=== PATIENT | male | born 1995 | race Caucasian/White ===

== ENCOUNTER 2018-12-16 14:44 | Emergency (ER) | payer SELFPAY ==
[2018-12-16 14:45] VITALS: BP 117/73; PULSE 108; RESP 16; TEMP 36.7; O2SAT 99; BMI 21.9
--- NOTE | 2018-12-16 15:14 | ED.VISSUMM ---
- ER Visit Summary Date of Service: 12/16/18 Chief Complaint: Abdominal pain History of Present Illness: The patient is a 23 M who presents with abdominal pain. He has had this pain intermittently for the past month. He describes a dull sensation in his epigastric area. Fatty food makes it worse. He has had nausea without vomiting. He has had one episode of diarrhea. He has taken Pepto and some Tylenol for this at home. Denies any history of abdominal problems or surgeries in the past. Today he had darker stools which is why he came in. Physical Examination: Vital signs reviewed. HEENT exam unremarkable. Heart is regular rate and rhythm without murmurs. Lungs are clear to auscultation. Abdomen is soft and nontender. Extremities reveal no edema. Skin exam normal. Neurologic exam normal. Test Results: Laboratory studies normal Emergency Department Course and Treatment: The patient likely has gastritis or an ulcer. I will give him Prilosec that he can take at home every day. He will avoid fatty foods. We will follow-up with a primary care physician. Treatment Plan: [] Disposition: Discharge Impression: Epigastric abdominal pain This note was generated with [employer] dictation software. It may contain incorrect words, spelling, and punctuation that were not noted in review of the chart prior to signing ED Disposition - Plan for ED Patient: Referrals: Johan Fernando [Primary Care Provider] -
[2018-12-16 15:40] LABS: Absolute Lymphocyte Count 1.95 X10^3/ul (0.83-4.51); Absolute Neutrophil Count 2.8 X10^3/uL (2.0-7.7); Basophil# 0.07 X10^3/uL; Basophil% 1.1 % (0-1); Eosinophils% 18.5 % (0-5); Hematocrit 42.1 % (40-54); Hemoglobin 14.4 g/dl (13.0-16.5); Lymphocyte # 1.95 X10^3/ul (4.0); Lymphocyte % 30.1 % (19-41); Mean Corp Hgb Conc 34.2 g/gl (32-36); Mean Corpuscular Hgb 30.4 pg (27.0-32.0); Mean Corpuscular Volume 88.8 fL (80-94); Mean Platelet Vol. 9.9 fl (6.2-12.0); Monocyte# 0.42 X10^3/uL; Monocyte% 6.5 % (0-10); Neutrophil # 2.82 X10^3/uL (2.7-7.7); Neutrophil % 43.6 % (47-70); Platelet Count 249 K/mm3 (150-450); RBC Distribution Width CV 12.6 % (11.6-14.6); RBC Distribution Width SD 40.5 fl (35.1-43.9); Red Blood Count 4.74 M/mm3 (4.6-6.2); White Blood Count 6.5 K/mm3 (4.4-11.0)
[2018-12-16 15:53] LABS: ALB/GLOB Ratio 1.2 RATIO (0.9-2.4); AST(SGOT) 16 U/L (15-37); Alanine Aminotransfer ALT/SGPT 32 U/L (16-61); Albumin, Serum 4.3 g/dL (3.2-5.0); Alkaline Phosphatase 57 U/L (45-117); Anion Gap 5 (5-15); BUN 5 mg/dL (7-18); BUN/Creat Ratio 7.1 RATIO (10-20); Calcium,Total 9.2 mg/dL (8.5-10.1); Chloride 107 mmol/L (98-107); EST Glomerular Filtration Rate 149 mL/min (>60); Est Glom Filt Rate - Afr Amer 180 mL/min (>60); Estimated Creatinine Clearance 153.35 ml/min; Globulin 3.5 g/dL (2.2-4.2); Glucose 103 mg/dL (74-106); Potassium 3.5 mmol/L (3.5-5.1); Protein, Total 7.8 g/dL (6.4-8.2); Sodium Level 142 mmol/L (136-145)
[2018-12-16 15:58] LABS: POSITIVE COUNT NO; POSITIVE DIFFERENTIAL NO; POSITIVE MORPHOLOGY NO
--- NOTE | 2018-12-16 16:04 | ED.DEP ---
ED Disposition - Plan for ED Patient: Disposition: Home or Assisted Living Instructions: ED Abdominal Pain Unkn Cause Prescriptions: Omeprazole [Prilosec] 20 mg PO DAILY #30 cap Referrals: Johan Fernando [Primary Care Provider] -
[2018-12-16 16:31] VITALS: BP 141/78; PULSE 79; RESP 16; O2SAT 98
== END 2018-12-16 16:33 | disposition home or self-care (01) ==
PROVIDERS: Emergency Provider Emergency Medicine; Family Provider Family Medicine; PCP Family Medicine
DX: R10.13 Epigastric pain (principal); R11.0 Nausea; R19.7 Diarrhea, unspecified
CPT/HCPCS: 80053; 85025; 99282

== ENCOUNTER 2019-01-06 07:29 | Day surgery (SDC) | payer SELFPAY ==
[2019-01-05 09:58] VITALS: BMI 21.9
[2019-01-06] VITALS (18 sets, daily range): BP systolic 85–126; BP diastolic 54–76; PULSE 52–104; RESP 16–22; TEMP 36.1–37.1; O2SAT 91–100; BMI 20.3; BMI 22.5
--- NOTE | 2019-01-06 | GALL_PTH ---
PATIENT: ORLY SUH LOC: [facility] U#:[id number] AGE/SX: 23/M ROOM: RE01/06/[address]: Dr. Adam Nazario MD : 1995 BED: DIS: 01/07/2019 SPEC #: [id number] RECD: 01/06/19 12:10 STATUS: PRABHJOTDayo SHARRI #: [id number] VIKRAM: 01/06/19 00:[address]: Adam Nazario DEPT: SURGICAL PATHOLOGY RECD BY: Zion Harris ENTERED: 01/06/19 12:10 SP TYPE: LAURA ZHANG DR: Dr. Johan Fernando MD Tissues: Gallbladder, NOS Procedures: Surgery Specimen Level III HEADER OPERATION: Laparoscopic cholecystectomy PRE-OP DIAGNOSIS: Epigastric abdominal pain; right upper quadrant abdominal pain; gallbladder sludge TISSUE SUBMITTED: Gallbladder MICROSCOPIC DIAGNOSIS Gallbladder, cholecystectomy: Mild chronic cholecystitis. Benign pericystic lymph node. AM:jennifer 01/07/19 MICROSCOPIC DESCRIPTION Slides are reviewed. GROSS DESCRIPTION Received is one container labeled with the patient's name and designated gallbladder. The specimen consists of a gallbladder measuring 9 cm in length and up to 4 cm in diameter. The external surface is pink-walsh, smooth and glistening for the most part. Focally it is granular, hemorrhagic and contains cautery artifact. The gallbladder contains green-yellow mucoid bile. No stones are identified in the container or in the gallbladder. The mucosa is bile-stained and without any mass lesions. The gallbladder wall measures 0.1 cm in thickness. Also present and close to the cystic duct is an ovoid walsh-pink tissue, a possible lymph node, measuring 1 cm in greatest dimension. Steel Inspector sections from the gallbladder and the cystic duct including entire possible lymph node are submitted in one cassette. / SJ:jennifer 01/06/19 TC:3 CPT: 13850
--- NOTE | 2019-01-06 07:40 | EKG12_ITS ---
Test Reason : PREOP Blood Pressure : / mmHG Vent. Rate : 063 BPM Atrial Rate : 063 BPM P-R Int : 164 ms QRS Dur : 098 ms QT Int : 390 ms P-R-T Axes : 078 075 063 degrees QTc Int : 399 ms Sinus rhythm with marked sinus arrhythmia Otherwise normal ECG No previous ECGs available Confirmed by PAULA PENN ([id number]), desk editor HAN COLE ([id number]) on 01/10/2019 1:45:40 PM Referred By: Adam Nazario Confirmed By:VALENTINA PENN
--- NOTE | 2019-01-06 08:58 | PCM.HP.BLA ---
History and Physical Date of Admission: 01/06/19 LIVE [facility] Office Visit Surgical Patient Name: ORLY SUH Date of : [birth year] Patient Status: Ambulatory Office Visit Attending Provider: Adam Nazario Date: 01/05/19 09:55 Initialization Date: 01/05/19 09:55 Intake Vital Signs 01/05/19 Body Mass Index (BMI) 21.9 01/05/19 Height 5 ft 9 in 01/05/19 Weight: 150 lb 01/05/19 Body Mass Index (BMI) 22.1 01/05/19 Blood Pressure 99/61 01/05/19 Blood Pressure Location Rt brachial 01/05/19 Blood Pressure Position Sitting 01/05/19 Respiratory Rate 18 01/03/19 Body Mass Index (BMI) 21.9 Intake Visit Reasons: Gallbladder Consult [facility] Lean Leader Required: No Is patient in pain?: No Allergies cashew nut Allergy (Verified 01/05/19 09:58) Swelling PFSH Family History Grandmother CVA (cerebral vascular accident) Heart disease Diabetes Grandfather Diabetes Heart disease Father Hypertension Mother Thyroid disorder Social History Smoking Status: Never smoker alcohol intake: current alcohol intake frequency: a few times a month HPI HPI HPI: ORLY SUH, is a 23 M who presents to the office today for HPI HPI Surgical H&P: Yes HPI: ORLY SUH, is a 23 M who presents to the office today for evaluation of right upper quadrant abdominal pain. Patient was seen in the emergency department at [facility] on 12/16/2018. The patient had been having right upper quadrant and epigastric abdominal pain with lots of nausea particularly after eating fatty meals. He has had no reflux no change in his bowel habits today he is currently not complaining of any abdominal pain he has had a gallbladder ultrasound which was completed at [facility] which showed gallbladder sludge and the common bile duct was 3.8 mm. ROS General General: Yes weight change, appetite and fatigue; no colon cancer, breast cancer or weakness HEENT HEENT: No difficulty swallowing, eye injury, eye surgery, swollen glands or hoarseness Endo Endocrine: No thyroid disease, diabetes mellitus, thyroid cancer, Hair loss, heat intolerance or cold intolerance Skin Skin: No rash or changing moles Breast Breast: No left breast lump, right breast lump, nipple discharge, breast pain, abnormal mammogram, abnormal US or breast enlargement Musc Musculoskeletal: Yes back problems; no arthritis, rheumatoid arthritis, gout or joint pain Cardio Cardiovascular: No murmur, pacemaker, heart disease, atrial fibrillation, high blood pressure, heart attack, heart stent, palpitations, shortness of breat with exertion or chest pain Psych Psychiatric: No depression, anxiety or hearing voices Resp Respiratory: No shortness of breath, No sleep apnea, No cough, No COPD, No asthma, No emphysema, No wheezing Gastro Gastrointestinal: Yes abdominal pain, Yes nausea or vomiting, Yes diarrhea, Yes constipation, No blood in stool, No acid reflux, No hemorrhoids, No ulcers, Yes gallbladder problem, Yes black,tarry stools Dusty Hematologic: No blood thinners, No blood disorders, No bleeding, No anemia, No blood clots Neuro Neurologic: No system reviewed and no additional complaints, except as docu, No as per HPI, No abnormal walking, No abnormal hearing, No abnormal movements, No abnormal speech, No behavioral changes, No burning sensations, No confusion, No seizure-like activity, No unsteadiness, No dizziness, No localized weakness, No frequent falls, No headache(s), No lack of coordination, No loss of vision, No memory loss, No numbness, No other visual disturbances, No radiating pain, No restless legs, No sensory deficit, No fainting, No tingling, No tremor(s), No weakness, No other Exam Const General: no acute distress, well developed, well hydrated Orientation: oriented to person, oriented to place, oriented to time [facility] Head: normocephalic, atraumatic Ears: external ears normal Mouth: moist mucous membranes Eyes Sclera: sclerae normal Pupils: normal by confrontation Neck Neck: no lymphadenopathy noted Neck mass: No Thyroid: thyroid normal, symmetrical Chest Chest palpation & inspection: normal inspection of the chest Breast Palpation: No nipple discharge Resp Effort & Inspection: normal respiratory effort Auscultation: clear to auscultation bilaterally Percussion: percussion normal Cardio Rate: regular rate Rhythm: regular rhythm Heart Sounds: no murmurs GI Palpation: soft, no hepatosplenomegaly, no masses, nontender Auscultation: normal bowel sounds Rectal Exam: other Other: Rectal exam deferred. Extrem General: normal to inspection, no clubbing, cyanosis or edema Assessment & Plan Problems 1. Epigastric abdominal pain R10.13 2. Right upper quadrant abdominal pain R10.11 3. Gallbladder sludge K82.8 Plan Reviewed the anatomy with the patient and discussed the procedure: laparoscopic cholecystectomy with possible cholangiograms, possible open. Review risks including but not limited to bleeding, infection, hernia, bile leak, retained gallstones requiring another procedure ERCP- Endoscopic Retrograde Cholangiopancreatography, injury to another organ (bile ducts, common bile duct, small bowel, etc.) and conversion to an open procedure. All questions were answered. Coding Level of Care Code Off vis,new,level 3 Diagnoses Epigastric abdominal pain R10.13 Right upper quadrant abdominal pain R10.11 Gallbladder sludge K82.8 I have re-examined the patient. There are no clinical changes since date of exam.
[2019-01-06] MEDS: Cefazolin 2 GM in 0.9% Normal Saline 100 ML IV (09:46)
--- NOTE | 2019-01-06 09:58 | PCM.OPRPT ---
Problem List (1) Calculus of gallbladder without cholecystitis without obstruction Status: Acute Report of Operation Date of Procedure: 01/06/19 Pre-Operative Diagnosis: Calculus of the gallbladder without obstruction Post-Operative Diagnosis: Same Surgery/Procedure Performed:: Laparoscopic cholecystectomy Type of Anesthesia:: General Anesthesiologist: Sonu Atkinson Specimen's removed: Gallbladder Estimated Blood Loss (mL): < 25 cc Description of Procedure: Patient was brought to the operating room placed in the supine position. Under excellent general trach intubation the abdomen was sterilely prepped and draped in the usual fashion. Local was injected infra umbilically. Dissection was carried down to the fascia. The fascia was grasped with a Raymond. Varies needle was placed inside the abdomen. The abdomen was insufflated to 15 torr. A 10/12 trocar was placed without difficulty. Patient was placed in the head up and rotated to the left position. A subxiphoid #5 trocar was placed, inferior to this another #5 trocar was placed, laterally a #5 trocar was placed. All these under direct visualization without injury to underlying structures. Fundus of the gallbladder was grasped retracted in cephalad direction. Infundibulum was grasped retracted laterally and dissected out the cystic duct. I placed hemoclips proximally and distally and ligated the duct. Identified the cystic artery. I placed hemoclips proximally and distally and ligated the artery. Deliver the gallbladder from gallbladder bed with use of electrocautery. I had good hemostasis. I removed the gallbladder through the umbilical port without difficulty. I reinflated the abdomen. I inspected the liver bed. It looked good and there was no signs of any bleeding. I removed the trochars under direct visualization. Good hemostasis was noted. To close the fascia the umbilical port with a figure stitch of 0 Vicryl. Skin incisions were closed with a particular stitches of 4-0 Monocryl. Steri-Strips were applied. Sterile dressings were applied. The patient tolerated the procedure well. - Admit VTE Documentation VTE Present on Admission: No VTE Mechan Device Prophylaxis: SCD's VTE Pharm Prophylaxis ordered?: No Reason prophylaxis not ordered:: Treatment Not Indicated
--- NOTE | 2019-01-06 10:01 | DCINST_ITS ---
Discharge Diet: Light diet - advance as tolerated Discharge Activity: May Not Drive - for 2-3 days or while taking narcotic pain medications., - - Do not drive, work heavy equipment or sign legal documents for 24 hours. May shower in (days): 1 - with the bandage in place. Additional Activity Instructions:: Pain medication may cause nausea. You should typically eat light foods as you take your pain medications. Pain medication may also cause constipation. If this is a problem for you, please discuss with your doctor. Call your doctor if your incision/area has: Continuous Slow Oozing, Sudden Increased Bleeding, Increased Pain/ Swelling, Increased Redness, Foul Smelling Discharge Call your doctor if you observe: Fever of 101 or Higher Suture Line Care: Avoid Pulling/Pushing, Avoid Pinching/Bending Additional Dressing/Incision Instructions:: Leave operative bandaids on for 2 days. When you remove dressing, leave Steri-Strips on until your follow-up appointment, or until the Steri-Strips fall off on their own. Allergies/Adverse Reactions: Allergies cashew nut Allergy (Verified 01/05/19 14:16) Swelling Medications to take at Discharge Psyllium Husk [Metamucil] 0.52 gm PO DAILY 01/05/19 Oxycodone HCl/Acetaminophen [Percocet 5/325] 1 - 2 tab PO Q4H PRN PRN 6 Days #30 tab 01/06/19 The following prescriptions were given: Oxycodone HCl/Acetaminophen [Percocet 5/325] 1 - 2 tab PO Q4H PRN PRN 6 Days #30 tab PRN Reason: Pain Primary Care Physician: Johan Fernando [Primary Care Provider] - Test Results: Test results from this visit will be discussed in further detail at your follow- up appointment, if applicable. Please Follow Up With: Adam Nazario MD - Please call [phone] to schedule an appointment. When: 7 days after your surgery.
[2019-01-06] MEDS: Bupivacaine Mpf 0.5% 30 ML VIAL (10:22)
[2019-01-06 17:27] LABS: Hematocrit 27.8 % (40-54); Hemoglobin 9.5 g/dl (13.0-16.5); Mean Corp Hgb Conc 34.2 g/gl (32-36); Mean Corpuscular Hgb 30.6 pg (27.0-32.0); Mean Corpuscular Volume 89.7 fL (80-94); Mean Platelet Vol. 10.5 fl (6.2-12.0); Platelet Count 202 K/mm3 (150-450); RBC Distribution Width CV 12.7 % (11.6-14.6); RBC Distribution Width SD 41.6 fl (35.1-43.9); White Blood Count 11.1 K/mm3 (4.4-11.0)
[2019-01-06 17:28] LABS: Scan Indicated on CBC? Y/N NO
--- NOTE | 2019-01-06 17:49 | PN.SURG_ITS ---
Patient Problems: Active and Suspected Problems (Last Reviewed 01/05/19 @ 10:06 by Adam Nazario MD) Calculus of bile duct with cholecystitis without obstruction (Acute) Calculus of gallbladder without cholecystitis without obstruction (Acute) Subjective: Patient status post a laparoscopic cholecystectomy. He however is been t achycardic and is developed postoperative hypotension and looks pale. His postoperative hemoglobin after aggressive IV hydration is 9.5. His pain is well controlled. Objective: Abdomen is soft dressings are dry - Physical Exam Vital Signs Temp Pulse Resp BP Pulse Ox 97.8 F 83 16 102/56 L 100 01/06/19 16:50 01/06/19 17:28 01/06/19 17:20 01/06/19 17:28 01/06/19 17:28 Oxygen Delivery Method Room Air Weight: 137 lb 12.623 oz Body Mass Index (BMI) 20.3 Intake and Output for Last 24 Hours 01/04/19 01/05/19 01/06/19 23:59 23:59 23:59 Intake Total 2300 / 2300 Balance 2300 / 2300 Laboratory Tests Past 24 Hrs 01/06/19 17:12 WBC 11.1 H RBC 3.10 L Hgb 9.5 L Hct 27.8 L MCV 89.7 MCH 30.6 MCHC 34.2 RDW 12.7 RDW Differential 41.6 Plt Count 202 MPV 10.5 Medical Necessity - Tobacco Use Smoking Status: Never smoker Tobacco Use: Non-smoker Assessment/Plan All Active Problems (Last Reviewed 01/05/19 @ 10:06 by Adam Nazario MD) Calculus of bile duct with cholecystitis without obstruction (Acute) Calculus of gallbladder without cholecystitis without obstruction (Acute) Patient has postoperative hemorrhage. I am going to have to taken back for an exploratory laparoscopy and see if I can find where he is bleeding from. More than likely a clip has come off of the cystic artery hopefully this is all that will need to be done I have explained to the patient that there is a chance that have to make an incision to control his hemorrhage. Bleeding infection are also risk of the surgery all questions asked were answered patient agrees to proceed.
--- NOTE | 2019-01-06 19:48 | PCM.OPRPT ---
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 Fluids Replaced: 1 L lr Description of Procedure: Patient was brought into the operating room and placed in the supine position. Under excellent general trach intubation Esparza catheter was placed the previous dressings were removed the abdomen was then sterilely prepped and draped in the usual fashion. I dissected down remove the 0 Vicryl from the umbilical fascia placed a 10/12 trocar into the abdomen and insufflated the abdomen to 15 torr patient was noted to have a large clot around the liver bed and extending down laterally on the right gutter. I placed all the #5 trochars back under direct visualization through their previous incisions. I grabbed the falciform ligament retracted the liver in a cephalad direction. I evacuated an extremely large clot when all said was done we irrigated out over 2 L of fluid. I am unsure if all of this was blood since he had had a previous surgery and I irrigated and I do not think I retrieved all that irrigation nevertheless this was an extremely large clot that was removed. I initially inspected the liver bed and saw no bleeding whatsoever I irrigated and not until I touched the cystic artery and the clips did we have bleeding it appeared that the clip had shifted off of the cystic stump. I was able to gain control of this quite easily I removed all the clips and dissected the cystic artery free and clear and replied a single hemo-lock clip. I retrieved the previous 2 clips. Whereat applied this clip looked healthy it was only on the duct and was not on any other extraneous tissues in the area. And since I had good hemostasis I did not feel placing another clip at the very distal end of the stump was going to aid and therefore I did not do this. I continue to irrigate fluid out of the pelvis patient was noted to have a retrocecal appendix and the tip of the appendix went all the way up to the liver near the gallbladder bed fossa. I placed a 15 round Anil-Callejas drain through the lateral incision into the liver bed and sutured in place with a 3-0 nylon. I reinspected the abdomen I saw no other blood clots that needed to be irrigated or retrieved I had a little bit of irrigation fluid that was in the pelvis I remove the trochars under direct visualization. Good hemostasis was noted. I closed the fascia the umbilical port with a [id number] stitch of 0 Vicryl. Skin incisions were closed with some particular stitches of 4-0 Monocryl. Steri-Strips were applied sterile dressings were applied and the patient tolerated the procedure well. Since I encountered more blood in the abdomen that I was anticipating I am going to obtain a CBC in the PACU. I will allow his hemoglobin to drift a little bit lower than 7 benefits in the 5 range I think he is probably going to have to have some blood. - Admit VTE Documentation VTE Present on Admission: No VTE Mechan Device Prophylaxis: SCD's VTE Pharm Prophylaxis ordered?: No Reason prophylaxis not ordered:: Treatment Not Indicated
--- NOTE | 2019-01-06 19:57 | OP.PCM_ITS ---
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 Fluids Replaced: 1 L lr Description of Procedure: Patient was brought into the operating room and placed in the supine position. Under excellent general trach intubation Esparza catheter was placed the previous dressings were removed the abdomen was then sterilely prepped and draped in the usual fashion. I dissected down remove the 0 Vicryl from the umbilical fascia placed a 10/12 trocar into the abdomen and insufflated the abdomen to 15 torr patient was noted to have a large clot around the liver bed and extending down laterally on the right gutter. I placed all the #5 trochars back under direct visualization through their previous incisions. I grabbed the falciform ligam ent retracted the liver in a cephalad direction. I evacuated an extremely large clot when all said was done we irrigated out over 2 L of fluid. I am unsure if all of this was blood since he had had a previous surgery and I irrigated and I do not think I retrieved all that irrigation nevertheless this was an extremely large clot that was removed. I initially inspected the liver bed and saw no bl eeding whatsoever I irrigated and not until I touched the cystic artery and the clips did we have bleeding it appeared that the clip had shifted off of the cystic stump. I was able to gain control of this quite easily I removed all the clips and dissected the cystic artery free and clear and replied a single hemo- lock clip. I retrieved the previous 2 clips. Whereat applied this clip looked healthy it was only on the duct and was not on any other extraneous tissues in the area. And since I had good hemostasis I did not feel placing another clip at the very distal end of the stump was going to aid and therefore I did not do this. I continue to irrigate fluid out of the pelvis patient was noted to have a retrocecal appendix and the tip of the appendix went all the way up to the liver near the gallbladder bed fossa. I placed a 15 round Anil-Callejas drain through the lateral incision into the liver bed and sutured in place with a 3-0 nylon. I reinspected the abdomen I saw no other blood clots that needed to be irrigated or retrieved I had a little bit of irrigation fluid that was in the pelvis I remove the trochars under direct visualization. Good hemostasis was noted. I closed the fascia the umbilical port with a [id number] stitch of 0 Vicryl. Skin incisions were closed with some particular stitches of 4-0 Monocryl. Steri-Strips were applied sterile dressings were applied and the patient tolerated the procedure well. Since I encountered more blood in the abdomen that I was anticipating I am going to obtain a CBC in the PACU. I will allow his hemoglobin to drift a little bit lower than 7 benefits in the 5 range I think he is probably going to have to have some blood. - Admit VTE Documentation VTE Present on Admission: No VTE Mechan Device Prophylaxis: SCD's VTE Pharm Prophylaxis ordered?: No Reason prophylaxis not ordered:: Treatment Not Indicated
[2019-01-06 20:12] LABS: Hematocrit 20.9 % (40-54); Hemoglobin 7.2 g/dl (13.0-16.5); Mean Corp Hgb Conc 34.4 g/gl (32-36); Mean Corpuscular Hgb 30.9 pg (27.0-32.0); Mean Corpuscular Volume 89.7 fL (80-94); Mean Platelet Vol. 9.5 fl (6.2-12.0); Platelet Count 141 K/mm3 (150-450); RBC Distribution Width CV 12.7 % (11.6-14.6); RBC Distribution Width SD 41.3 fl (35.1-43.9); Red Blood Count 2.33 M/mm3 (4.6-6.2); White Blood Count 9.4 K/mm3 (4.4-11.0)
[2019-01-06 20:13] LABS: Scan Indicated on CBC? Y/N NO
[2019-01-06] MEDS: Cefazolin 1 GM/50 ML BAG IV (21:06)
[2019-01-06] MEDS: Lactated Ringers 1,000 ML 75 ML IV (22:45)
--- NOTE | 2019-01-06 23:01 | NURSING ---
dressing around KARLEE drain saturated, KARLEE drain emptied for 20mls of bright red blood. Will reinforce site, will continue to monitor.
[2019-01-07] MEDS: HYDROmorphone 1 MG/ML Syringe IV ×5 (00:49→18:57)
[2019-01-07 00:55] VITALS: BP 112/48; PULSE 102; RESP 16; TEMP 37.2; O2SAT 96
[2019-01-07 04:30] VITALS: BP 110/46; PULSE 95; RESP 16; TEMP 36.8; O2SAT 96
[2019-01-07] MEDS: Cefazolin 1 GM/50 ML BAG IV (04:31)
[2019-01-07 06:40] LABS: Absolute Lymphocyte Count 1.02 X10^3/ul (0.83-4.51); Absolute Neutrophil Count 7.2 X10^3/uL (2.0-7.7); Basophil# 0.01 X10^3/uL; Basophil% 0.1 % (0-1); Hematocrit 19.1 % (40-54); Hemoglobin 6.4 g/dl (13.0-16.5); Lymphocyte # 1.02 X10^3/ul (4.0); Lymphocyte % 11.3 % (19-41); Mean Corp Hgb Conc 33.5 g/gl (32-36); Mean Corpuscular Hgb 30.3 pg (27.0-32.0); Mean Corpuscular Volume 90.5 fL (80-94); Mean Platelet Vol. 11.4 fl (6.2-12.0); Monocyte# 0.82 X10^3/uL; Monocyte% 9.1 % (0-10); Neutrophil % 79.4 % (47-70); Platelet Count 149 K/mm3 (150-450); RBC Distribution Width CV 12.4 % (11.6-14.6); RBC Distribution Width SD 39.1 fl (35.1-43.9); Red Blood Count 2.11 M/mm3 (4.6-6.2); White Blood Count 9.1 K/mm3 (4.4-11.0)
[2019-01-07 06:55] LABS: POSITIVE COUNT NO; POSITIVE DIFFERENTIAL NO; POSITIVE MORPHOLOGY NO
--- NOTE | 2019-01-07 07:17 | PCM.PN.SRG ---
Patient Problems: Active and Suspected Problems (Last Reviewed 01/05/19 @ 10:06 by Adam Nazario MD) Calculus of bile duct with cholecystitis without obstruction (Acute) Calculus of gallbladder without cholecystitis without obstruction (Acute) Postoperative hemorrhage involving digestive system following non-digestive system procedure (Acute) Post-operative haemorrhage (Acute) Subjective: Patient's pain is fairly well controlled. KARLEE drainage is minimal Objective: Abdomen is soft dressings are dry KARLEE was removed without difficulty - Physical Exam Vital Signs Temp Pulse Resp BP Pulse Ox 98.3 F 95 16 110/46 L 96 01/07/19 04:30 01/07/19 04:30 01/07/19 04:30 01/07/19 04:30 01/07/19 04:30 Oxygen Delivery Method Room Air Weight: 148 lb 2.41 oz Body Mass Index (BMI) 22.5 Intake and Output for Last 24 Hours 01/05/19 01/06/19 01/07/19 23:59 23:59 23:59 Intake Total 3937 / 3937 547 / 547 Output Total 690 / 690 770 / 770 Balance 3247 / 3247 -223 / -223 Laboratory Tests Past 24 Hrs 01/06/19 01/06/19 01/06/19 17:12 17:40 20:00 WBC 11.1 H 9.4 RBC 3.10 L 2.33 L Hgb 9.5 L 7.2 L Hct 27.8 L 20.9 L MCV 89.7 89.7 MCH 30.6 30.9 MCHC 34.2 34.4 RDW 12.7 12.7 RDW Differential 41.6 41.3 Plt Count 202 141 L MPV 10.5 9.5 Immature Gran % (Auto) Neut % (Auto) Lymph % (Auto) St[place] % (Auto) Eos % (Auto) Baso % (Auto) Absolute Neuts (auto) Absolute Lymphs (auto) Total Counted Blood Type A POSITIVE Antibody Screen NEGATIVE Crossmatch See Detail 01/07/19 05:14 WBC 9.1 RBC 2.11 L Hgb 6.4 L Hct 19.1 L MCV 90.5 MCH 30.3 MCHC 33.5 RDW 12.4 RDW Differential 39.1 Plt Count 149 L MPV 11.4 Immature Gran % (Auto) 0.100 Neut % (Auto) 79.4 H Lymph % (Auto) 11.3 L [place] % (Auto) 9.1 Eos % (Auto) 0.0 Baso % (Auto) 0.1 Absolute Neuts (auto) 7.2 Absolute Lymphs (auto) 1.02 Total Counted Not Reportable Blood Type Antibody Screen Crossmatch Medical Necessity - Tobacco Use Smoking Status: Never smoker Tobacco Use: Non-smoker Assessment/Plan All Active Problems (Last Reviewed 01/05/19 @ 10:06 by Adam Nazario MD) Calculus of bile duct with cholecystitis without obstruction (Acute) Calculus of gallbladder without cholecystitis without obstruction (Acute) Postoperative hemorrhage involving digestive system following non-digestive system procedure (Acute) Post-operative haemorrhage (Acute) Going to Hep-Lock his IV today. I like to recheck a hemoglobin later this afternoon. Patient's blood pressure is stable his heart rate is in the 90s which I think is appropriate secondary to losing half of his blood volume. I do not think the patient is bleeding at this moment though.
[2019-01-07 07:51] VITALS: BP 95/47; PULSE 82; RESP 16; TEMP 37; O2SAT 97
--- NOTE | 2019-01-07 08:36 | CASEMGMT ---
Social Work Note Per PFS, pt has [facility] Package Plan. Jackelyn Roland PUBLIC ADDRESS SYSTEMS MECHANIC, CREATIVE PROJECT MANAGER
[2019-01-07] MEDS: 0.9% NaCl Peripheral Flush Adult/Peds IV ×3 (09:34→18:59)
[2019-01-07 13:14] VITALS: BP 111/58; PULSE 82; RESP 16; TEMP 36.8; O2SAT 99
[2019-01-07 13:59] LABS: Hemoglobin 6.8 g/dl (13.0-16.5)
--- NOTE | 2019-01-07 13:59 | CASEMGMT ---
SW met w/pt and in regard to financial questions. They have a [employer], and were to pay a package aceves prior to pt leaving; however, pt ended up having to stay overnight and they have questions in regard to how to proceed in regard to paying. SW explained will call the financial department. SW called, spoke w/Jackelyn, and she will come up to speak w/pt and . SW let pt and know that Jackelyn from the financial department will be up soon. No further needs at this time. MIAH Gil
[2019-01-07 19:00] VITALS: BP 111/62; PULSE 97; RESP 18; TEMP 36.8; O2SAT 100
== END 2019-01-07 20:00 | disposition home or self-care (01) ==
LOC: SDC 07:34 → AC 07:36 → MS3 18:50
PROVIDERS: Anesthesiology; Family Provider Family Medicine; PCP Family Medicine; Referring Provider Surgery; Visit Provider Surgery
PROC: (CPT 47562; principal; 2019-01-06 09:15)
DX: K80.64 Calculus of gallbladder and bile duct with chronic cholecystitis without obstruction (principal); K91.840 Postprocedural hemorrhage of a digestive system organ or structure following a digestive system procedure; Y83.8 Other surgical procedures as the cause of abnormal reaction of the patient, or of later complication, without mention of misadventure at the time of the procedure; Y92.239 Unspecified place in hospital as the place of occurrence of the external cause
CPT/HCPCS: 35840; 47562; 36415; 85018; 85025; 85027; 86850; 86900; 86920; 86922; 88304; 93005; J7120; A4216; J2405

== ENCOUNTER 2022-01-07 11:30 | Outpatient (RCR) | payer OTHER, SELFPAY ==
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
--- NOTE | 2022-01-07 12:06 | HP.OTDCSUM ---
It has been my pleasure to treat ORLY SUH under orders from Dalton Garza PA-C, for the diagnosis of non displaced fx of PF Mid 3rd of navicular bone of wrist. for a total of 2 visit(s). Please see the following information for a summary of their discharge status. 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 right lateral pinch 12# left 14#. right tripod pinch 10# left 12#. right 75/80 left 85/75 ( above avg. ROM). pt reports he is IND with ADLs and IADLs at this time Patient Goals: Regain Mobility, Regain Strength, Decrease Swelling/Stiffness, Improve Fine Motor Skills, Use Hand/Wrist/Arm Normally Again, Increase ROM, Resume Former Household Responsibilities (Cooking,Cleaning,Yard, etc.), Resume Hobbies Goal:: Pt. to improve R hand strength from 60# to 80# to increase independence with caring for son by dc. Pt. 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 Goal:: Pt. to increase R wrist ext/flex (from R 65/80 to 85/90) for IADL tasks of bike riding by dc. Goal:: Pt. will verbalize 2 joint protection strategies that he has adapted at work by dc. Plan: D/C pt with HEP Discharge Comments: PT reports doing well and pt is demo a functional ROM and strength. Pt reports he is IND with ADLs and IADLS. therapist D/C with HEP for wrist stabilization ex. and PRE. pt agree to POC. If there are questions or concerns regarding this patient's occupational therapy, please fell free to call me at [phone]. Thank you for the referral of this patient. Sincerely, Shari Jean, OTR/L, CHT
== END 2022-01-07 19:00 | disposition home or self-care (01) ==
LOC: OT 11:30
PROVIDERS: PCP Family Medicine; Referring Provider Physician Assistant; Visit Provider Physician Assistant
DX: S62.024D Nondisplaced fracture of middle third of navicular [scaphoid] bone of right wrist, subsequent encounter for fracture with routine healing (principal); X58.XXXD Exposure to other specified factors, subsequent encounter
CPT/HCPCS: 97166; 97530

== ENCOUNTER → 2022-07-11 | Outpatient (CLI) | payer OTHER, SELFPAY ==
[2022-07-11 15:15] LABS: Absolute Lymphocyte Count 2.29 X10^3/uL (0.83-4.51); Absolute Neutrophil Count 2.3 X10^3/uL (2.0-7.7); Basophil# 0.06 X10^3/uL; Basophil% 1.1 % (0-1); Eosinophil# 0.12 X10^3/uL; Eosinophils% 2.3 % (0-5); Hematocrit 44.5 % (40-54); Hemoglobin 14.3 g/dL (13.0-16.5); Lymphocyte # 2.29 X10^3/ul (0.83-4.51); Lymphocyte % 43.7 % (19-41); Mean Corp Hgb Conc 32.1 g/dL (32-36); Mean Corpuscular Hgb 29.9 pg (27.0-32.0); Mean Corpuscular Volume 93.1 fL (80-94); Monocyte# 0.49 X10^3/uL; Monocyte% 9.4 % (0-10); NRBC Flagged by Analyzer 0 % (0-5); Neutrophil # 2.28 X10^3/uL (2.7-7.7); Neutrophil % 43.5 % (47-70); Platelet Count 306 K/mm3 (150-450); RBC Distribution Width CV 12.5 % (11.6-14.6); RBC Distribution Width SD 43.2 fl (35.1-43.9); Red Blood Count 4.78 M/mm3 (4.6-6.2); White Blood Count 5.2 K/mm3 (4.4-11.0)
[2022-07-11 15:46] LABS: ALB/GLOB Ratio 1.3 RATIO (0.9-2.4); AST(SGOT) 20 U/L (15-37); Alanine Aminotransfer ALT/SGPT 34 U/L (16-61); Albumin, Serum 4.2 g/dL (3.2-5.0); Alkaline Phosphatase 45 U/L (45-117); Anion Gap 4 (5-15); BUN 10 mg/dL (7-18); BUN/Creat Ratio 15.1 RATIO (10-20); Calcium,Total 9.5 mg/dL (8.5-10.1); Chloride 108 mmol/L (98-107); Creatinine, Serum 0.66 mg/dL (0.70-1.30); EST Glomerular Filtration Rate 154 mL/min (>60); Est Glom Filt Rate - Afr Amer 187 mL/min (>60); Globulin 3.3 g/dL (2.2-4.2); Glucose 93 mg/dL (74-106); Potassium 4.2 mmol/L (3.5-5.1); Protein, Total 7.5 g/dL (6.4-8.2); Sodium Level 141 mmol/L (136-145); Thyroid Stim Hormone (TSH) 1.38 uIU/mL (0.358-3.74)
[2022-07-11 15:52] LABS: Vitamin B12 397 pg/mL (211-911)
[2022-07-14 19:04] LABS: Vitamin D 1,25-Dihydroxy 38.2 pg/mL (24.8-81.5)
== END | disposition home or self-care (01) ==
LOC: MFPLAB 12:01
PROVIDERS: PCP Nurse Practitioner Family; Referring Provider Nurse Practitioner Family; Visit Provider Nurse Practitioner Family
DX: L65.9 Nonscarring hair loss, unspecified (principal)
CPT/HCPCS: 36415; 80053; 82607; 82652; 84443; 85025

== ENCOUNTER → 2022-11-18 | Outpatient (CLI) | payer OTHER, SELFPAY ==
[2022-11-18 15:31] LABS: Absolute Lymphocyte Count 1.64 X10^3/uL (0.83-4.51); Absolute Neutrophil Count 3.3 X10^3/uL (2.0-7.7); Basophil# 0.05 X10^3/uL; Basophil% 0.9 % (0-1); Eosinophil# 0.14 X10^3/uL; Eosinophils% 2.5 % (0-5); Hemoglobin 14.1 g/dL (13.0-16.5); Lymphocyte # 1.64 X10^3/ul (0.83-4.51); Lymphocyte % 29.5 % (19-41); Mean Corp Hgb Conc 33.6 g/dL (32-36); Mean Corpuscular Hgb 30.8 pg (27.0-32.0); Mean Corpuscular Volume 91.7 fL (80-94); Mean Platelet Vol. 9.9 fl (6.2-12.0); Monocyte# 0.46 X10^3/uL; Monocyte% 8.3 % (0-10); NRBC Flagged by Analyzer 0 % (0-5); Neutrophil # 3.25 X10^3/uL (2.7-7.7); Neutrophil % 58.6 % (47-70); Platelet Count 347 K/mm3 (150-450); RBC Distribution Width CV 12.7 % (11.6-14.6); RBC Distribution Width SD 42.5 fl (35.1-43.9); Red Blood Count 4.58 M/mm3 (4.6-6.2); White Blood Count 5.6 K/mm3 (4.4-11.0)
[2022-11-18 16:34] LABS: Ferritin 65 ng/mL (26-388); Free T3 3.2 pg/mL (2.18-3.98); T4 Free Direct 1.05 ng/dL (0.76-1.46); Thyroid Stim Hormone (TSH) 0.83 uIU/mL (0.358-3.74)
[2022-11-20 19:07] LABS: Anti-Thyroglobulin AB < 1.0 IU/mL (0.0-0.9); Thyroglobulin, Serum Qt. 21.7 ng/mL (1.4-29.2); Thyroid Peroxidase AB < 9 IU/mL (0-34)
== END | disposition home or self-care (01) ==
LOC: MFPLAB 14:08
PROVIDERS: PCP Family Medicine; Visit Provider Family Medicine
DX: L65.9 Nonscarring hair loss, unspecified (principal)
CPT/HCPCS: 36415; 82728; 84432; 84439; 84443; 84481; 85025; 86376; 86800

== ENCOUNTER → 2023-06-30 | Outpatient (CLI) | payer OTHER, SELFPAY ==
[2023-06-30 18:34] LABS: Amphetamine Urine VISTA NEGATIVE (<1000 ng/mL); Barbiturate Urine VISTA NEGATIVE (< 200 ng/mL); Benzodiazepine Urine VISTA NEGATIVE (< 200 ng/mL); Cocaine Urine VISTA NEGATIVE (< 300 ng/mL); Ecstacy Urine VISTA NEGATIVE (< 500 ng/mL); Methadone Urine VISTA NEGATIVE (< 300 ng/mL); PCP Urine VISTA NEGATIVE (< 25 ng/mL); THC Urine VISTA NEGATIVE (< 50 ng/mL); Vista UDS pH Range 6
== END | disposition home or self-care (01) ==
LOC: MTLAB 16:29
PROVIDERS: PCP Family Medicine; Referring Provider Internal Medicine Pulmonary Disease; Visit Provider Internal Medicine Pulmonary Disease
DX: G47.10 Hypersomnia, unspecified (principal)
CPT/HCPCS: 80307

== ENCOUNTER → 2025-01-11 | Outpatient (CLI) | payer MEDICAID, SELFPAY ==
[2025-01-11 16:37] LABS: Absolute Lymphocyte Count 1.83 X10^3/uL (0.83-4.51); Absolute Neutrophil Count 4.3 X10^3/uL (2.0-7.7); Basophil# 0.08 X10^3/uL; Basophil% 1.1 % (0-1); Eosinophil# 0.23 X10^3/uL; Eosinophils% 3.2 % (0-5); Hematocrit 41.6 % (40-54); Hemoglobin 14.1 g/dL (13.0-16.5); Lymphocyte # 1.83 X10^3/ul (0.83-4.51); Lymphocyte % 25.6 % (19-41); Mean Corp Hgb Conc 33.9 g/dL (32-36); Mean Corpuscular Hgb 30.3 pg (27.0-32.0); Mean Corpuscular Volume 89.5 fL (80-94); Mean Platelet Vol. 9.5 fl (6.2-12.0); Monocyte# 0.68 X10^3/uL; Monocyte% 9.5 % (0-10); NRBC Flagged by Analyzer 0 % (0-5); Neutrophil # 4.33 X10^3/uL (2.7-7.7); Neutrophil % 60.5 % (47-70); Platelet Count 292 K/mm3 (150-450); RBC Distribution Width CV 12.5 % (11.6-14.6); RBC Distribution Width SD 40.9 fl (35.1-43.9); Red Blood Count 4.65 M/mm3 (4.6-6.2); White Blood Count 7.2 K/mm3 (4.4-11.0)
[2025-01-11 17:22] LABS: ALB/GLOB Ratio 1.7 RATIO (0.9-2.4); AST(SGOT) 24 U/L (<=37); Alanine Aminotransfer ALT/SGPT 30 U/L (<=46); Albumin, Serum 4.4 g/dL (3.5-5.0); Alkaline Phosphatase 43 U/L (40-129); Anion Gap 11 (5-15); BUN 13 mg/dL (4-19); BUN/Creat Ratio 20.3 RATIO (10-20); Calcium,Total 9.2 mg/dL (7.6-11.0); Carbon Dioxide 22.8 mmol/L (21.0-32.0); Chloride 104 mmol/L (98-108); Creatinine, Serum 0.63 mg/dL (0.70-1.20); EST Glomerular Filtration Rate 133 (>60); Globulin 2.6 g/dL (2.2-4.2); Glucose 105 mg/dL (70-99); Potassium 4.1 mmol/L (3.3-5.1); Sodium Level 139 mmol/L (133-145); Total Bilirubin 0.24 mg/dL (0.00-1.30)
[2025-01-11 17:35] LABS: Hemoglobin A1c 5.8 % (<=5.6)
[2025-01-11 17:50] LABS: Cholesterol 191 mg/dL (<=200); High Density Lipoprotein 45 mg/dL; Low Density Lipoprotein Calc. 119 mg/dL; Triglycerides 132 mg/dL; Very Low Density Lipoprotein 26 mg/dL (5-40); cholesterol:hdl ratio screen 4.22
== END | disposition home or self-care (01) ==
LOC: VSLAB 12:12
DX: Z13.6 Encounter for screening for cardiovascular disorders (principal); Z13.220 Encounter for screening for lipoid disorders; Z13.1 Encounter for screening for diabetes mellitus
CPT/HCPCS: 36415; 80053; 80061; 83036; 84443; 85025